=== PATIENT | male | born 1980 | race African-American/Black ===

== ENCOUNTER 2019-09-28 13:22 | Emergency (ER) | payer MEDICAID ==
--- NOTE | 2019-09-28 14:19 | EDM.PDOC ---
ED HPI GENERAL MEDICAL PROBLEM - General Chief Complaint: Abdominal Pain Stated Complaint: STOMACH CRAMPS Time Seen by Provider: 09/28/19 13:40 Source of Information: Reports: Patient History Limitations: Reports: No Limitations - History of Present Illness INITIAL COMMENTS - FREE TEXT/NARRATIVE: c/o cramping abd pain pt states he had repair of a hiatal hernia in 2012 with placement of mesh, he has had freq cramping pain in the epigastrium every since, usually on a daily basis has had inc'd pain in the past week, occurs every hour both day and night, last for 15 minutes, has not taken any meds for it nothing seems to make it worse, does feel better if he presses a pillow into his upper abd has soft BM q1-2d without change he had surgery as an for Hirshsprung's disease, had a colostomy for 9m, done at [facility] in [facility], says "a good chunk" of his intestines were removed altho does not know how emily lives with reynaldo and 6 children, not working, on disability for [employer], ADHD, bipolar and 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 09/28/19 [Rx] amLODIPine [Norvasc] 5 mg PO DAILY #14 tab 09/28/19 [Rx] lisinopriL [Lisinopril] 5 mg PO DAILY #14 tablet 09/28/19 [Rx] Past Medical History Other Gastrointestinal History: born with Hirschsprung's disease, repaired with mesh Psychiatric History: Reports: Anxiety Other Psychiatric History: generalized anxiety, currently not medicating - Past Surgical History GI Surgical History: Reports: Hernia, Abdominal Other GI Surgeries/Procedures: 2012 hernia repair, mesh Social & Family History - Tobacco Use Smoking Status *Q: Current Every Day Smoker Years of Tobacco use: 30 Packs/Tins Daily: 0.1 ED ROS GENERAL - Review of Systems Review Of Systems: See Below Constitutional: Reports: No Symptoms HEENT: Reports: No Symptoms Respiratory: Reports: No Symptoms Cardiovascular: Reports: No Symptoms Endocrine: Reports: No Symptoms GI/Abdominal: Reports: Abdominal Pain. Denies: Constipation, Diarrhea, Nausea, Vomiting : Reports: No Symptoms Musculoskeletal: Reports: No Symptoms Skin: Reports: No Symptoms Neurological: Reports: No Symptoms Psychiatric: Reports: No Symptoms Hematologic/Lymphatic: Reports: No Symptoms Immunologic: Reports: No Symptoms ED EXAM, GI/ABD - Physical Exam Exam: See Below Exam Limited By: No Limitations General Appearance: Alert, WD/WN, No Apparent Distress Ears: Hearing Grossly Normal Nose: Normal Inspection, Normal Mucosa, No Blood Throat/Mouth: Normal Inspection, Normal Lips, Normal Voice Head: Atraumatic, Normocephalic Neck: Normal Inspection, Supple, Non-Tender, Full Range of Motion. No: Lymphadenopathy (R), Lymphadenopathy (L) Respiratory/Chest: No Respiratory Distress, Lungs Clear, Normal Breath Sounds, Chest Non-Tender Cardiovascular: Regular Rate, Rhythm, No Edema, No Gallop, No Murmur GI/Abdominal Exam: Normal Bowel Sounds, Soft, Non-Tender, No Organomegaly, No Distention, Other (inc'd abd girth d/t inc'd adipose tissue and central obesity, NT, old lower horizontal scar (from Hirschspurng's surgery, not as low as [place]), small periumbilical scar (from hiatal hernia surgery)) Back Exam: Normal Inspection, Full Range of Motion. No: CVA Tenderness (R), CVA Tenderness (L) Extremities: Normal Inspection, Normal Range of Motion, Non-Tender, No Pedal Edema Neurological: Alert, Oriented, CN II-XII Intact, Normal Cognition, Normal Gait, No Motor/Sensory Deficits Psychiatric: Normal Affect, Normal Mood Skin Exam: Warm, Dry, Intact, Normal Color, No Rash Lymphatic: No Adenopathy Comments: inc'd BP, pt reports no inc'd BP or BP meds in past Course - Vital Signs Last Recorded V/S: Last Vital Signs Temp 36.7 C 09/28/19 13:42 Pulse 82 09/28/19 13:42 Resp 18 09/28/19 13:42 BP 166/134 H 09/28/19 13:42 Pulse Ox 98 09/28/19 13:42 - Orders/Labs/Meds Orders: Active Orders 24 hr Category Date Time Status EKG Documentation Completion [RC] ASDIRECTED Care 09/28/19 14:11 Active Abdomen 2V AP Flat Upright [CR] Stat Exams 09/28/19 14:11 Ordered EKG 12 Lead [EK] Routine Ther 09/28/19 14:10 Ordered Labs: Laboratory Tests 09/28/19 09/28/19 09/28/19 Range/Units 14:25 14:25 14:25 WBC 6.1 (4.5-12.0) X10-3/uL RBC 5.47 (4.30-5.75) x10(6)uL Hgb 13.3 L (13.5-17.8) g/dL Hct 42.2 (30.0-51.3) % MCV 77.2 L (80-96) fL MCH 24.3 L (27.7-33.6) pg MCHC 31.5 L (32.2-35.4) g/dL RDW 15.3 (11.5-15.5) % Plt Count 263 (125-369) X10(3)uL MPV 8.6 (7.4-10.4) fL Neut % (Auto) 59.6 (46-82) % Lymph % (Auto) 24.8 (13-37) % [place] % (Auto) 7.7 (4-12) % Eos % (Auto) 6 H (1.0-5.0) % Baso % (Auto) 2 (0-2) % Neut # (Auto) 3.7 (1.6-8.3) # Lymph # (Auto) 1.5 (0.6-5.0) # [place] # (Auto) 0.5 (0.0-1.3) # Eos # (Auto) 0.3 (0.0-0.8) # Baso # (Auto) 0.1 (0.0-0.2) # Sodium 142 (135-145) mmol/L Potassium 3.6 (3.5-5.3) mmol/L Chloride 106 (100-110) mmol/L Carbon Dioxide 29 (21-32) mmol/L BUN 9 (7-18) mg/dL Creatinine 1.1 (0.70-1.30) mg/dL Est Cr Clr Drug Dosing 91.25 mL/min Estimated GFR (MDRD) > 60 (>60) BUN/Creatinine Ratio 8.2 L (9-20) Glucose 177 H (80-116) mg/dL Calcium 9.1 (8.6-10.2) mg/dL Total Bilirubin 0.4 (0.1-1.3) mg/dL AST 17 (5-25) IU/L ALT 32 (12-36) U/L Alkaline Phosphatase 75 (56-112) IU/L Troponin I 6.9 (4.0-60.3) pg/mL C-Reactive Protein 0.4 L (0.5-0.9) mg/dL Total Protein 7.2 (6.0-8.0) g/dL Albumin 3.9 (3.5-5.2) g/dL Globulin 3.3 g/dL Albumin/Globulin Ratio 1.2 Lipase 115 (73-393) U/L Urine Color (YELLOW) Urine Appearance (CLEAR) Urine pH (5.0-6.5) Ur Specific [place] (1.010-1.025) Urine Protein (NEGATIVE) mg/dL Urine Glucose (UA) (NORMAL) mg/dL Urine Ketones (NEGATIVE) mg/dL Urine Occult Blood (NEGATIVE) Urine Nitrite (NEGATIVE) Urine Bilirubin (NEGATIVE) Urine Urobilinogen (NEGATIVE) mg/dL Ur Leukocyte Esterase (NEGATIVE) Urine RBC (0-5) Urine WBC (0-5) Ur Squamous Epith Cells (NS,R,O) Urine Bacteria (NS) Urine Mucus (NS) 09/28/19 Range/Units 14:44 WBC (4.5-12.0) X10-3/uL RBC (4.30-5.75) x10(6)uL Hgb (13.5-17.8) g/dL Hct (30.0-51.3) % MCV (80-96) fL MCH (27.7-33.6) pg MCHC (32.2-35.4) g/dL RDW (11.5-15.5) % Plt Count (125-369) X10(3)uL MPV (7.4-10.4) fL Neut % (Auto) (46-82) % Lymph % (Auto) (13-37) % [place] % (Auto) (4-12) % Eos % (Auto) (1.0-5.0) % Baso % (Auto) (0-2) % Neut # (Auto) (1.6-8.3) # Lymph # (Auto) (0.6-5.0) # [place] # (Auto) (0.0-1.3) # Eos # (Auto) (0.0-0.8) # Baso # (Auto) (0.0-0.2) # Sodium (135-145) mmol/L Potassium (3.5-5.3) mmol/L Chloride (100-110) mmol/L Carbon Dioxide (21-32) mmol/L BUN (7-18) mg/dL Creatinine (0.70-1.30) mg/dL Est Cr Clr Drug Dosing mL/min Estimated GFR (MDRD) (>60) BUN/Creatinine Ratio (9-20) Glucose (80-116) mg/dL Calcium (8.6-10.2) mg/dL Total Bilirubin (0.1-1.3) mg/dL AST (5-25) IU/L ALT (12-36) U/L Alkaline Phosphatase (56-112) IU/L Troponin I (4.0-60.3) pg/mL C-Reactive Protein (0.5-0.9) mg/dL Total Protein (6.0-8.0) g/dL Albumin (3.5-5.2) g/dL Globulin g/dL Albumin/Globulin Ratio Lipase (73-393) U/L Urine Color Yellow (YELLOW) Urine Appearance Clear (CLEAR) Urine pH 5.0 (5.0-6.5) Ur Specific [place] 1.020 (1.010-1.025) Urine Protein 30 H (NEGATIVE) mg/dL Urine Glucose (UA) Normal (NORMAL) mg/dL Urine Ketones Negative (NEGATIVE) mg/dL Urine Occult Blood Negative (NEGATIVE) Urine Nitrite Negative (NEGATIVE) Urine Bilirubin Negative (NEGATIVE) Urine Urobilinogen Normal (NEGATIVE) mg/dL Ur Leukocyte Esterase Negative (NEGATIVE) Urine RBC 0-5 (0-5) Urine WBC 0-5 (0-5) Ur Squamous Epith Cells Moderate H (NS,R,O) Urine Bacteria Few H (NS) Urine Mucus Moderate H (NS) - Re-Assessments/Exams Free Text/Narrative Re-Assessment/Exam: 09/28/19 16:12 abd 2v unremarkable on prelim ED read, no excess stool, no dilation labs reviewed with pt cause of intermittent epigastric pain unclear, may be spasm from GERD, will tx empirically as possible GERD also needs meds for inc'd BP and LVH will need further eval of inc'd glu, pt aware A1C and ferritin pending pt agrees to see PCP Departure - Departure Time of Disposition: 16:00 Disposition: Home, Self-Care 01 Condition: Good Clinical Impression: Stomach spasm, GERD (gastroesophageal reflux disease), Elevated blood pressure reading, LVH (left ventricular hypertrophy), Hyperglycemia, Proteinuria, Microcytic hypochromic anemia - Discharge Information *PRESCRIPTION DRUG MONITORING PROGRAM REVIEWED*: Not Applicable *COPY OF PRESCRIPTION DRUG MONITORING REPORT IN PATIENT JODY: Not Applicable Prescriptions: lisinopriL [Lisinopril] 5 mg PO DAILY #14 tablet amLODIPine [Norvasc] 5 mg PO DAILY #14 tab Omeprazole 20 mg PO DAILY #14 tablet. Instructions: Gastroesophageal Reflux Disease, Adult, Hypertension, Adult, Managing Your Hypertension, Hyperglycemia Referrals: Golden Mcdaniels MD [Primary Care Provider] - Forms: ED Department Discharge Additional Instructions: For stomach spasm and to decrease acid production, take omeprazole 20 mg 1 tab daily for 14 days. To coat stomach and neutralize acid, take liquid antacid 30 ml (2 tablespoons) at onset of stomach cramp, may repeat x 1 as needed. For blood pressure and spasm, take amlodipine 5 mg 1 tab daily. For blood pressure and kidneys, take lisinopril 5 mg [address] King in the next week for further evaluation and recommendations. Return to Emergency Department if you are feeling worse. Sepsis Event Note (ED) - Evaluation Sepsis Screening Result: No Definite Risk - Focused Exam Vital Signs: Vital Signs Temp Pulse Resp BP Pulse Ox 09/28/19 13:42 36.7 C 82 18 166/134 H 98 - My Orders Last 24 Hours: My Active Orders 09/28/19 14:10 EKG 12 Lead [EK] Routine 09/28/19 14:11 EKG Documentation Completion [RC] ASDIRECTED Abdomen 2V AP Flat Upright [CR] Stat - Assessment/Plan Last 24 Hours: My Active Orders 09/28/19 14:10 EKG 12 Lead [EK] Routine 09/28/19 14:11 EKG Documentation Completion [RC] ASDIRECTED Abdomen 2V AP Flat Upright [CR] Stat
[2019-09-28 16:14] LABS: HEMOGLOBIN A1C 7.4 % (<5.7)
[2019-09-28] MEDS: amLODIPine 5 MG Tab PO ONE (16:19)
[2019-09-29] MEDS ORDERED: Pantoprazole 40 MG Tab.CR PO SCH (06:00)
== END 2019-09-28 16:25 | disposition home or self-care (01) ==
LOC: FB.ED 13:22
DX: K21.9 Gastro-esophageal reflux disease without esophagitis (principal); K31.89 Other diseases of stomach and duodenum; I51.7 Cardiomegaly; R03.0 Elevated blood-pressure reading, without diagnosis of hypertension; R73.9 Hyperglycemia, unspecified; R80.9 Proteinuria, unspecified; D50.9 Iron deficiency anemia, unspecified; F17.210 Nicotine dependence, cigarettes, uncomplicated; Z79.899 Other long term (current) drug therapy
CPT/HCPCS: 36415; 74019; 80053; 81001; 83036; 83690; 84484; 85025; 86140; 93005; 99284; A9270